=== PATIENT | female | born 1970 | race Caucasian/White ===

== ENCOUNTER 2016-10-20 13:06 | Emergency (ER) | payer MEDICAID ==
[~2016-10-20] VITALS: Ht 170.2 cm; Wt 80.0 kg
[2016-10-20 13:08] VITALS: BP 162/120; PULSE 102; RESP 22; TEMP 98.8; O2SAT 98
--- NOTE | 2016-10-20 13:23 | PD ---
Physical Exam Date Seen by Provider: Oct 20, 2016 Time Seen by Provider: 13:17 Narrative 45 YOWF FRIDAY INJURY LIFTING SEEN AT [facility]. PAIN MED AND IA. CONCERN OVER POSSIBLE HERNIA. H/O PRIOR HERNIA AND MESH. SEEN BY PMD ( DR LOUISE) WHO HAD REFERED HER TO THE ER. CT DONE AND NEG. NO VOMITING. SOME NAUSEA. POS LUPUS AND RA. VS NOTED. PT AWAITING BED PLACEMENT. Data Data Last Documented VS Vital Signs Date Time Temp Pulse Resp B/P Pulse Ox O2 Delivery O2 Flow Rate FiO2 10/20/16 13:08 98.8 102 22 162/120 98 MDM Medical Record Reviewed: Yes Supervised Visit with CRISTINA: Yes Jimmy Kennedy Oct 20, 2016 13:23
[2016-10-20] MEDS ORDERED: DIAZ5TAB PO (13:30)
[2016-10-20] MEDS ORDERED: HYDR-3583 PO (13:30)
[2016-10-20] MEDS ORDERED: TIZA4CAP3 PO (13:30)
[2016-10-20] MEDS ORDERED: MORP1CAP79 PO (13:30)
[2016-10-20] MEDS ORDERED: GABA600T PO (13:30)
[2016-10-20] MEDS ORDERED: MIRTA15 PO (13:30)
[2016-10-20 13:52] VITALS: BP 149/75; PULSE 90; RESP 22; O2SAT 97
[2016-10-20] MEDS: ONDANSETRON HCL 4 MG/2 ML VIAL IV ONE (13:53)
[2016-10-20] MEDS: SODIUM CHLORIDE 0.9% FLUSH 10 ML FLUSH IV FLUSH PRN (13:53)
[2016-10-20] MEDS: MORPHINE SULFATE 4 MG/ML INJ IV PUSH ONE (13:54)
[2016-10-20 14:04] LABS: AUTOMATED NEUTROPHIL # 5.1 TH/MM3 (1.8-7.7); BASOPHIL # 0.2 TH/MM3 (0-0.2); BASOPHIL % 1.3 % (0.0-2.0); EOSINOPHIL # 0.3 TH/MM3 (0-0.4); EOSINOPHIL % 2.2 % (0.0-4.0); HEMATOCRIT 45.6 % (35.0-46.0); LYMPH % 47.7 % (9.0-44.0); LYMPHOCYTE # 5.7 TH/MM3 (1.0-4.8); MEAN CELL VOLUME 86.9 FL (80.0-100.0); MEAN CORPUSCULAR HEMOGLOBIN 29.6 PG (27.0-34.0); MEAN CORPUSCULAR HGB CONC 34.1 % (32.0-36.0); MONO % 6.4 % (0.0-8.0); NEUT % 42.4 % (16.0-70.0); PLATELET COUNT 378 TH/MM3 (150-450); RED BLOOD COUNT 5.25 MIL/MM3 (4.00-5.30)
[2016-10-20 14:06] LABS: HEMO FLAGS AUTO DIFF
[2016-10-20] MEDS: IOHEXOL 350 MG/ML 10 ML VIAL (for RAD DIAG) IV ONE (14:07)
[2016-10-20 14:14] LABS: INTERNATIONAL NORMALIZED RATIO 0.9 RATIO; PROTHROMBIN TIME - PATIENT 10.4 SEC (9.8-11.6)
[2016-10-20 14:20] LABS: ANION GAP 9 MEQ/L (5-15); AST (GOT) 33 U/L (15-37); BICARBONATE 26.8 MEQ/L (21.0-32.0); BLOOD UREA NITROGEN 5 MG/DL (7-18); CHLORIDE 106 MEQ/L (98-107); GLOMERULAR FILTRATION RATE 80 ML/MIN (>89); POTASSIUM 3.4 MEQ/L (3.5-5.1); SODIUM (NA) 142 MEQ/L (136-145)
[2016-10-20 14:28] LABS: ALKALINE PHOSPHATASE 82 U/L (45-117); ALT (GPT) 48 U/L (10-53); TOTAL BILIRUBIN ADULT 0.2 MG/DL (0.2-1.0)
--- NOTE | 2016-10-20 14:34 | RADRPT ---
EXAM DATE/TIME: 10/20/2016 14:08 [facility] COMPARISON: No previous studies available for comparison. INDICATIONS : Evaluate for hernia. IV CONTRAST: 75 cc Omnipaque 350 (iohexol) IV ORAL CONTRAST: No oral contrast ingested. RADIATION DOSE: 12.11 CTDIvol (mGy) MEDICAL HISTORY : Rheumatoid arthritis. SURGICAL HISTORY : Cholecystectomy. Hysterectomy.Pelvic, Hernia repair. ENCOUNTER: Initial ACUITY: 1 day PAIN SCALE: 5/10 LOCATION: Bilateral abdomen TECHNIQUE: Volumetric scanning of the abdomen and pelvis was performed. Using automated exposure control and ad justment of the mA and/or kV according to patient size, radiation dose was kept as low as reasonably achievable to obtain optimal diagnostic quality images. FINDINGS: LOWER LUNGS: The visualized lower lungs are clear. LIVER: Homogeneous density without lesion. There is no dilation of the biliary tree. The patient is status post prior cholecystectomy. SPLEEN: Normal size without lesion. PANCREAS: Within normal limits. KIDNEYS: Normal in size and shape. There is no mass, stone or hydronephrosis. ADRENAL GLANDS: Within normal limits. VASCULAR: There is no aortic aneurysm. BOWEL/MESENTERY: The stomach, small bowel, and colon demonstrate no acute abnormality. There is no free intraperitone al air or fluid. ABDOMINAL WALL: There is a mesh identified in the midline umbilical region with area of mild diastases but no evidenc e of discrete hernia. RETROPERITONEUM: There is no lymphadenopathy. BLADDER: No wall thickening or mass. REPRODUCTIVE: Within normal limits. INGUINAL: There is no lymphadenopathy or hernia. MUSCULOSKELETAL: No evidence of concerning lytic or blastic lesion. Surgical plate and screws traverse the bilateral p ubic bones. CONCLUSION: Evidence of prior mesh repair with small area of rectus diastases and no evidence of hernia. Bailee Hale MD on October 20, 2016 at 14:30 Board Certified Radiologist. This report was verified electronically.
[2016-10-20 14:35] LABS: BANDS 1 % (0-6); EOSINOPHILS 3 % (0-4); NEUTROPHIL # MANUAL DIFF 5.5 TH/MM3 (1.8-7.7); PLATELET ESTIMATE SMEAR NORMAL (NORMAL); PLATELET MORPHOLOGY NORMAL (NORMAL); POLYS (SEG NEUTROPHILS) 45 % (16-70); SCAN/DIFF FINAL DIFF MANUAL; WBC DIFF SAMPLE 100
[2016-10-20 14:46] VITALS: BP 138/78; PULSE 86; RESP 17; TEMP 97.8; O2SAT 99
--- NOTE | 2016-10-20 14:50 | PD ---
HPI Chief Complaint: Abdominal Pain Time Seen by Provider: 13:26 Travel History International Travel<30 days: No Contact w/Intl Traveler<30days: No Traveled to known affect area: No History of Present Illness HPI The patient was seen and examined in the presence of the nurse. This patient complains of abdominal pain. Location is a few centimeters above and to the left of the umbilicus. Duration is one week. Severity is moderate. No injury. It started when she was lifting a 40 pound bag of dog food and felt a rip in her abdomen. She has history of hernia repair with mesh there. No vomiting or diarrhea or fever. No alleviating factors. PFSH Past Medical History Diminished Hearing: No Kidney Stones: Yes Medical other: Yes (LUPUS, RA, NEUROPATHY IN FEET AND HANDS) Tetanus Vaccination: Unknown ?: Not Past Surgical History Cholecystectomy: Yes Hysterectomy: Yes Oral Surgery: Yes (L WRIST SX, L LEG, BROKEN PELVIS) Other Surgery: Yes (HERNIA SX X 3) Social History Alcohol Use: Yes (RARELY) Tobacco Use: Yes (1 PPD) Substance Use: No Allergies-Medications (Allergen,Severity, Reaction): Coded Allergies: Codeine (Verified Allergy, Severe, 10/20/16) Nubain (Verified Allergy, Severe, 10/20/16) Penicillin (Verified Allergy, Severe, 10/20/16) Sulfa (Verified Allergy, Severe, 10/20/16) Reported Meds & Prescriptions Reported Meds & Active Scripts Active Reported Diazepam 5 Mg Tab 5 Mg PO TID PRN Mirtazapine 15 Mg Tab 15 Mg PO HS Embeda (Morphine-Naltrexone ER) 20-0.8 Mg Caper 1 Cap PO DAILY Tizanidine (Tizanidine HCl) 4 Mg Cap 4 Mg PO TID Hydrocodone-Acetaminophen 10-325 mg Tab 1 Tab PO TID PRN Gabapentin 600 Mg Tab 600 Mg PO TID Review of Systems General / Constitutional: No: Fever Eyes: No: Visual changes HENT: No: Headaches Cardiovascular: No: Chest Pain or Discomfort Respiratory: No: Shortness of Breath Gastrointestinal: Positive: Abdominal Pain Genitourinary: No: Dysuria Musculoskeletal: No: Pain Skin: No Rash Neurologic: No: Weakness Psychiatric: No: Depression Endocrine: No: Polydipsia Hematologic/Lymphatic: No: Easy Bruising Physical Exam Narrative GENERAL: Well-nourished, well-developed patient with abdominal pain . SKIN: Focused skin assessment reveals no rash and nodules. Skin is Warm and dry. HEAD: Atraumatic. Normocephalic. EYES: Pupils equal and round. No scleral icterus. No injection or drainage. ENT: No nasal bleeding or discharge. Mucous membranes pink and moist. NECK: Trachea midline. No JVD. CARDIOVASCULAR: Regular rate and rhythm. No murmur appreciated. RESPIRATORY: No accessory muscle use. Clear to auscultation. Breath sounds equal bilaterally. GASTROINTESTINAL: Abdomen soft, there is tenderness in a discrete area above and left of the umbilicus. There is no rebound or guarding or hernia detected on exam, nondistended. Hepatic and splenic margins not palpable. MUSCULOSKELETAL: No obvious deformities. No clubbing. No cyanosis. No edema. NEUROLOGICAL: Awake and alert. No obvious cranial nerve deficits. Motor grossly within normal limits. Normal speech. PSYCHIATRIC: Highly anxious mood and affect; insight and judgment normal. Data Data Last Documented VS Vital Signs Date Time Temp Pulse Resp B/P Pulse Ox O2 Delivery O2 Flow Rate FiO2 10/20/16 14:46 97.8 86 17 138/78 99 Room Air Orders Complete Blood Count With Diff (10/20/16 13:40) Comprehensive Metabolic Panel (10/20/16 13:40) Lipase (10/20/16 13:40) Prothrombin Time / Inr (Pt) (10/20/16 13:40) Act Partial Throm Time (Ptt) (10/20/16 13:40) Ct Abd/Pel W Iv Contrast(Rout) (10/20/16 13:40) Iv Access Insert/Monitor (10/20/16 13:40) Ecg Monitoring (10/20/16 13:40) Oximetry (10/20/16 13:40) Sodium Chloride 0.9% Flush (Ns Flush) (10/20/16 13:45) Ondansetron Inj (Zofran Inj) (10/20/16 13:45) Morphine Inj (Morphine Inj) (10/20/16 13:45) Iohexol 350 Inj (Omnipaque 350 Inj) (10/20/16 14:07) Labs Laboratory Tests Test 10/20/16 13:48 White Blood Count 12.0 TH/MM3 Red Blood Count 5.25 MIL/MM3 Hemoglobin 15.5 GM/DL Hematocrit 45.6 % Mean Corpuscular Volume 86.9 FL Mean Corpuscular Hemoglobin 29.6 PG Mean Corpuscular Hemoglobin 34.1 % Concent Red Cell Distribution Width 13.0 % Platelet Count 378 TH/MM3 Mean Platelet Volume 8.2 FL Neutrophils (%) (Auto) 42.4 % Lymphocytes (%) (Auto) 47.7 % Monocytes (%) (Auto) 6.4 % Eosinophils (%) (Auto) 2.2 % Basophils (%) (Auto) 1.3 % Neutrophils # (Auto) 5.1 TH/MM3 Lymphocytes # (Auto) 5.7 TH/MM3 Monocytes # (Auto) 0.8 TH/MM3 Eosinophils # (Auto) 0.3 TH/MM3 Basophils # (Auto) 0.2 TH/MM3 CBC Comment AUTO DIFF Differential Total Cells 100 Counted Neutrophils % (Manual) 45 % Band Neutrophils % 1 % Lymphocytes % 47 % Monocytes % 4 % Eosinophils % 3 % Neutrophils # (Manual) 5.5 TH/MM3 Differential Comment FINAL DIFF MANUAL Atypical Lymphocytes % Platelet Estimate NORMAL Platelet Morphology Comment NORMAL Red Cell Morphology Comment NORMAL Prothrombin Time 10.4 SEC Prothromb Time International 0.9 RATIO Ratio Activated Partial 27.0 SEC Thromboplast Time Sodium Level 142 MEQ/L Potassium Level 3.4 MEQ/L Chloride Level 106 MEQ/L Carbon Dioxide Level 26.8 MEQ/L Anion Gap 9 MEQ/L Blood Urea Nitrogen 5 MG/DL Creatinine 0.77 MG/DL Estimat Glomerular Filtration 80 ML/MIN Rate Random Glucose 97 MG/DL Calcium Level 8.6 MG/DL Total Bilirubin 0.2 MG/DL Aspartate Amino Transf 33 U/L (AST/SGOT) Alanine Aminotransferase 48 U/L (ALT/SGPT) Alkaline Phosphatase 82 U/L Total Protein 7.3 GM/DL Albumin 3.3 GM/DL Lipase 81 U/L [facility] Medical Decision Making Medical Screen Exam Complete: Yes Emergency Medical Condition: Yes Medical Record Reviewed: Yes Differential Diagnosis Incarcerated hernia, ileus, irritable bowel syndrome Narrative Course I have reviewed the patient's electronic medical record. She has never been here to this ER before IV placed I gave her 1 dose of morphine and Zofran for symptom relief CBC is normal Metabolic profile is normal LFTs are normal CT of abdomen and pelvis reveals no evidence of hernia. There is a mild area of rectus diastases. No other abnormalities noted. I reviewed this with the patient. She is to call her family physician tomorrow for follow-up. Diagnosis Primary Impression: Acute abdominal pain Additional Impression: Rectus diastasis Additional Instructions: The patient was advised to follow up with their physician and return if they worsen. Med/Other Pt SpecificInfo: Other Disposition: 01 DISCHARGE HOME Condition: Stable Alfred Castro MD Oct 20, 2016 14:50
[2016-10-20 15:20] VITALS: BP 130/77; TEMP 97.8
== END 2016-10-20 15:20 | disposition home or self-care (01) ==
LOC: NEPE 13:06
DX: R10.9 Unspecified abdominal pain (principal); M32.9 Systemic lupus erythematosus, unspecified; M06.9 Rheumatoid arthritis, unspecified; G62.9 Polyneuropathy, unspecified; F17.200 Nicotine dependence, unspecified, uncomplicated
CPT/HCPCS: 74177; 80053; 83690; 85007; 85027; 85610; 85730; 96374; 96375; 99284; J2270; J2405; Q9967

== ENCOUNTER 2016-10-27 12:34 | Observation (INO) | payer MEDICAID ==
[~2016-10-27] VITALS: Ht 170.2 cm; Wt 78.0 kg
[~2016-10-27 12:34] MED LIST: DIAZ5TAB PO; GABA600T PO; HYDR-3583 PO; MIRTA15 PO; MORP1CAP79 PO; TIZA4CAP3 PO
[2016-10-27 12:43] VITALS: BP 141/88; PULSE 100; RESP 22; TEMP 97.9; O2SAT 97
--- NOTE | 2016-10-27 12:43 | PD ---
HPI . hernia pain Chief Complaint: hernia pain today Time Seen by Provider: 12:43 Travel History International Travel<30 days: No Contact w/Intl Traveler<30days: No Traveled to known affect area: No History of Present Illness HPI 45-year-old female here with complaints of hernia pain. Patient was seen here on October 20, 2016 regarding the same issue. Apparently she has a periumbilical hernia that has been repaired 3 times with mesh and thinks that it has returned. She tells me that this morning she picked up her niece who is "chunky " and hurt herself. She is very tearful and crying out in pain. Initially she rates the pain as 10/10. She was also seen by Dr. Ty Hill and told him the pain was 12/10. The CT scan done last week and it was negative for any acute findings. Today she is also complaining of some additional nausea and vomiting. She denies any fever or chills. She has no other complaints. She has no bowel abnormalities. PFSH Past Medical History Diminished Hearing: No Kidney Stones: Yes Past Surgical History Cholecystectomy: Yes Hysterectomy: Yes Oral Surgery: Yes (L WRIST SX, L LEG, BROKEN PELVIS) Other Surgery: Yes (HERNIA SX X 3) Social History Alcohol Use: Yes (RARELY) Tobacco Use: Yes (1 PPD) Substance Use: No Allergies-Medications (Allergen,Severity, Reaction): Coded Allergies: Codeine (Verified Allergy, Severe, 10/27/16) Nubain (Verified Allergy, Severe, 10/27/16) Penicillin (Verified Allergy, Severe, 10/27/16) Sulfa (Verified Allergy, Severe, 10/27/16) Reported Meds & Prescriptions Reported Meds & Active Scripts Active Reported Diazepam 5 Mg Tab 5 Mg PO TID PRN Mirtazapine 15 Mg Tab 15 Mg PO HS Embeda (Morphine-Naltrexone ER) 20-0.8 Mg Caper 1 Cap PO DAILY Tizanidine (Tizanidine HCl) 4 Mg Cap 4 Mg PO TID Hydrocodone-Acetaminophen 10-325 mg Tab 1 Tab PO TID PRN Gabapentin 600 Mg Tab 600 Mg PO TID Review of Systems General / Constitutional: No: Fever Eyes: No: Visual changes HENT: No: Headaches Cardiovascular: No: Chest Pain or Discomfort Respiratory: No: Shortness of Breath Gastrointestinal: Positive: Nausea, Vomiting, Abdominal Pain Genitourinary: No: Dysuria Musculoskeletal: No: Pain Skin: No Rash Neurologic: No: Weakness Psychiatric: No: Depression Endocrine: No: Polydipsia Hematologic/Lymphatic: No: Easy Bruising Physical Exam Narrative GENERAL: AAO x 3, no acute distress, Well-nourished, well-developed patient. Tearful, sitting in bed and appears uncomfortable SKIN: Warm and dry. No visible rashes or bruising. HEAD: Normocephalic and atraumatic. EYES: No scleral icterus. No injection or drainage. ENT: No nasal drainage noted. Airway patent. NECK: Supple, trachea midline. No JVD. CARDIOVASCULAR: Regular rate and rhythm without murmurs, gallops, or rubs. RESPIRATORY: Breath sounds equal bilaterally. No accessory muscle use. No rhonchi or rales. GASTROINTESTINAL: Abdomen soft. I can barely assess the abdomen. Even my slightest touch causes significant discomfort and pain. Bowel sounds are normoactive EXTREMITIES: No cyanosis or edema. BACK: Nontender without obvious deformity. No CVA tenderness. PSYCH: AAO x 3, appears anxious Data Data Last Documented VS Vital Signs Date Time Temp Pulse Resp B/P Pulse Ox O2 Delivery O2 Flow Rate FiO2 10/27/16 15:50 80 18 126/58 98 Room Air 10/27/16 12:43 97.9 Orders Complete Blood Count With Diff (10/27/16 12:55) Comprehensive Metabolic Panel (10/27/16 12:55) Lipase (10/27/16 12:55) Urinalysis - C+S If Indicated (10/27/16 12:55) Ct Abd/Pel W Iv Contrast(Rout) (10/27/16 12:55) Iv Access Insert/Monitor (10/27/16 12:55) Ecg Monitoring (10/27/16 12:55) Oximetry (10/27/16 12:55) Ondansetron Inj (Zofran Inj) (10/27/16 13:00) Sodium Chloride 0.9% Flush (Ns Flush) (10/27/16 13:00) Ed Urine Pregnancytest Poc (10/27/16 12:55) Oral Contrast - Adult (10/27/16 13:02) Hydromorphone Pf Inj (Dilaudid Pf Inj) (10/27/16 13:15) Diatrizoate Liq ( Gastroce Liq) (10/27/16 13:22) Hydromorphone Pf Inj (Dilaudid Pf Inj) (10/27/16 13:30) Drug Screen, Random Urine (10/27/16 13:29) Urine Culture (10/27/16 14:05) Ketorolac Inj (Toradol Inj) (10/27/16 15:30) Iohexol 350 Inj (Omnipaque 350 Inj) (10/27/16 15:43) Admit Order (Ed Use Only) (10/27/16 16:38) Labs Laboratory Tests Test 10/27/16 10/27/16 13:13 14:05 White Blood Count 13.4 TH/MM3 Red Blood Count 5.06 MIL/MM3 Hemoglobin 14.8 GM/DL Hematocrit 44.4 % Mean Corpuscular Volume 87.9 FL Mean Corpuscular Hemoglobin 29.2 PG Mean Corpuscular Hemoglobin 33.2 % Concent Red Cell Distribution Width 13.4 % Platelet Count 314 TH/MM3 Mean Platelet Volume 8.4 FL Neutrophils (%) (Auto) 63.7 % Lymphocytes (%) (Auto) 26.4 % Monocytes (%) (Auto) 7.6 % Eosinophils (%) (Auto) 1.4 % Basophils (%) (Auto) 0.9 % Neutrophils # (Auto) 8.5 TH/MM3 Lymphocytes # (Auto) 3.5 TH/MM3 Monocytes # (Auto) 1.0 TH/MM3 Eosinophils # (Auto) 0.2 TH/MM3 Basophils # (Auto) 0.1 TH/MM3 CBC Comment DIFF FINAL Differential Comment Sodium Level 138 MEQ/L Potassium Level 3.6 MEQ/L Chloride Level 106 MEQ/L Carbon Dioxide Level 24.7 MEQ/L Anion Gap 7 MEQ/L Blood Urea Nitrogen 8 MG/DL Creatinine 0.79 MG/DL Estimat Glomerular Filtration 78 ML/MIN Rate Random Glucose 93 MG/DL Calcium Level 8.8 MG/DL Total Bilirubin 0.4 MG/DL Aspartate Amino Transf 50 U/L (AST/SGOT) Alanine Aminotransferase 67 U/L (ALT/SGPT) Alkaline Phosphatase 84 U/L Total Protein 7.4 GM/DL Albumin 3.2 GM/DL Lipase 83 U/L Urine Color YELLOW Urine Turbidity HAZY Urine pH 5.0 Urine Specific [place] 1.020 Urine Protein TRACE mg/dL Urine Glucose (UA) NEG mg/dL Urine Ketones NEG mg/dL Urine Occult Blood NEG Urine Nitrite NEG Urine Bilirubin NEG Urine Urobilinogen 2.0 MG/DL Urine Leukocyte Esterase NEG Urine RBC 1 /hpf Urine WBC 3 /hpf Urine Squamous Epithelial 10 /hpf Cells Urine Bacteria MANY /hpf Urine Mucus FEW /lpf Microscopic Urinalysis Comment CULTURE INDICATED Urine Opiates Screen POS Urine Barbiturates Screen NEG Urine Amphetamines Screen NEG Urine Benzodiazepines Screen POS Urine Cocaine Screen NEG Urine Cannabinoids Screen POS MDM Medical Decision Making Medical Screen Exam Complete: Yes Emergency Medical Condition: Yes Medical Record Reviewed: Yes Differential Diagnosis Abdominal pain, hernia, less likely acute abdomen Narrative Course 45-year-old female here with complaints of hernia pain. Patient was seen here on October 20, 2016 regarding the same issue. Apparently she has a periumbilical hernia that has been repaired 3 times with mesh and thinks that it has returned. She tells me that this morning she picked up her niece who is "chunky " and hurt herself. She is very tearful and crying out in pain. Initially she rates the pain as 10/10. She was also seen by Dr. Ty Hill and told him the pain was 12/10. The CT scan done last week and it was negative for any acute findings. Today she is also complaining of some additional nausea and vomiting. She denies any fever or chills. She has no other complaints. She has no bowel abnormalities. Patient seen and examined. Case discussed with Dr. Ty Hill, who also examined the patient. We recommend another CT scan, initially patient declined, but now she is in agreement. We will also check some labs to make sure there is no abnormal white count or electrolyte abnormality. Lipase ordered. Her white count is slightly elevated, her LFTs are slightly elevated. Lipase within normal Limits. CT scan without any acute intra-abdominal findings. Patient reported bright red blood per rectum. Dr. Hill performed a bedside guaiac test that was negative. We will go ahead and admit this patient for further evaluation and treatment. Called placed for admitting physicians for call back. [id number]: I spoke with Dr. Clemens. He has agreed to take the patient. Patient has been admitted for 23 hour observation and placed in the CDU. I have discussed this with her and she was in agreement and happy. Diagnosis Primary Impression: Acute abdominal pain Admitting Information Admitting Physician Requests: Admit Condition: Stable Jaimie Quevedo Oct 27, 2016 12:43
[2016-10-27 13:00] VITALS: RESP 18; O2SAT 98
[2016-10-27] MEDS ORDERED: ONDANSETRON HCL 4 MG/2 ML VIAL IVP ONE (13:00)
[2016-10-27] MEDS ORDERED: HYDROmorphone HCL PF 1 MG/ML VIAL IV PUSH ONE ×2 (13:15→13:30)
[2016-10-27] MEDS ORDERED: DIATRIZOATE MEGLUM/DIATRIZOATE SOD 9 ML CUP ONE (13:22)
[2016-10-27 13:30] LABS: AUTOMATED NEUTROPHIL # 8.5 TH/MM3 (1.8-7.7); BASOPHIL # 0.1 TH/MM3 (0-0.2); BASOPHIL % 0.9 % (0.0-2.0); EOSINOPHIL # 0.2 TH/MM3 (0-0.4); EOSINOPHIL % 1.4 % (0.0-4.0); HEMATOCRIT 44.4 % (35.0-46.0); HEMO FLAGS DIFF FINAL; LYMPH % 26.4 % (9.0-44.0); LYMPHOCYTE # 3.5 TH/MM3 (1.0-4.8); MEAN CELL VOLUME 87.9 FL (80.0-100.0); MEAN CORPUSCULAR HEMOGLOBIN 29.2 PG (27.0-34.0); MEAN CORPUSCULAR HGB CONC 33.2 % (32.0-36.0); MONO % 7.6 % (0.0-8.0); NEUT % 63.7 % (16.0-70.0); PLATELET COUNT 314 TH/MM3 (150-450); RED BLOOD COUNT 5.06 MIL/MM3 (4.00-5.30); RED CELL DISTRIBUTION WIDTH 13.4 % (11.6-17.2); WHITE BLOOD COUNT 13.4 TH/MM3 (4.0-11.0)
[2016-10-27 13:53] LABS: ANION GAP 7 MEQ/L (5-15); AST (GOT) 50 U/L (15-37); BICARBONATE 24.7 MEQ/L (21.0-32.0); BLOOD UREA NITROGEN 8 MG/DL (7-18); CHLORIDE 106 MEQ/L (98-107); GLOMERULAR FILTRATION RATE 78 ML/MIN (>89); POTASSIUM 3.6 MEQ/L (3.5-5.1); SODIUM (NA) 138 MEQ/L (136-145)
[2016-10-27 13:56] LABS: ALKALINE PHOSPHATASE 84 U/L (45-117); ALT (GPT) 67 U/L (10-53); TOTAL BILIRUBIN ADULT 0.4 MG/DL (0.2-1.0)
[2016-10-27 14:18] LABS: BACTERIA, URINE MANY /hpf; BLOOD, URINE NEG (NEG); GLUCOSE,URINE NEG (NEG); KETONE, URINE NEG (NEG); MUCUS URINE FEW /lpf (OCC); NITRITE,URINE NEG (NEG); SQUAMOUS EPITHELIAL CELL URINE 10 /hpf (0-5); URINE COLOR YELLOW (YELLW/STRAW)
[2016-10-27 14:19] LABS: COMMENT (UR) CULTURE INDICATED; CULTURE IF INDICATED CULTURE INDICATED
[2016-10-27 14:23] LABS: AMPHETAMINE, URINE NEG (NEG); BARBITURATES, URINE NEG (NEG); COCAINE, URINE NEG (NEG)
[2016-10-27] MEDS ORDERED: KETOROLAC TROMETHAMINE 60 MG/2 ML (IM) VIAL IM ONE (15:30)
[2016-10-27] MEDS ORDERED: IOHEXOL 350 MG/ML 10 ML VIAL (for RAD DIAG) IV ONE (15:43)
[2016-10-27 15:50] VITALS: BP 126/58; PULSE 80; RESP 18; O2SAT 98
--- NOTE | 2016-10-27 16:06 | RADRPT ---
EXAM DATE/TIME: 10/27/2016 15:06 [facility] COMPARISON: CT ABDOMEN & PELVIS W CONTRAST, October 20, 2016, 14:08. INDICATIONS : Periumbilical pain, nausea. IV CONTRAST: 98 cc Omnipaque 350 (iohexol) IV ORAL CONTRAST: Prescribed oral contrast ingested. RADIATION DOSE: 13.20 CTDIvol (mGy) MEDICAL HISTORY : Hernia, umbilical. SURGICAL HISTORY : Umbilical hernia repair. Cholecystectomy.Hysterectomy. ENCOUNTER: Initial ACUITY: 1 day PAIN SCALE: 8/10 LOCATION: Umbilical TECHNIQUE: Volumetric scanning of the abdomen and pelvis was performed. Using automated exposure control and ad justment of the mA and/or kV according to patient size, radiation dose was kept as low as reasonably achievable to obtain optimal diagnostic quality images. FINDINGS: Lung bases are clear. There is diffuse fatty infiltration of the liver. Spleen, adrenals, kidneys and pancreas unremarkable. Previous cholecystectomy. Mild constipation. Previous ventral hernia repair. Previous plate and screw fixation of the anterior pelvis. Postoperative cholecystectomy and hysterectomy. CONCLUSION: 1. Postoperative ventral hernia repair the periumbilical region as well as cholecystectomy and hyster ectomy. Also previous fixation of anterior bony pelvis. 2. Fatty liver. No acute findings within the abdomen or pelvis. 3. Mild constipation. Jimmy Clemente MD on October 27, 2016 at 16:00 Board Certified Radiologist. This report was verified electronically.
--- NOTE | 2016-10-27 16:54 | HHI.HP ---
[facility] Service [place] [facility] Primary Care Physician Non-Staff Admission Diagnosis Intractable abdominal pain Diagnoses: Chief Complaint: abdominal pain Travel History International Travel<30 Days: No Contact w/Intl Traveler <30 Da: No Traveled to Known Affected Are: No History of Present Illness 45-year-old female with reported history of lupus, rheumatoid arthritis, umbilical hernia s/p repair x3 with mesh presents with 1 day history of acute on chronic abdominal pain. Patient reports her symptoms were exacerbated two weeks ago when she was picking up a 50 pound bag of dog food and had immediate onset of abdominal pain near the umbilicus. The pain improved, however again today she picked up a 3-year-old child and had acute onset abdominal pain. She locates the pain to the umbilical region without radiation, described as constant 12/10 sharp stabbing pains, associated with nausea and one episode of vomiting. Denies fevers or chills. She reports one normal formed bowel movement yesterday, however has been having bright red blood per rectum over the past week. She did take her home narcotic pain medication that she is prescribed for her pelvic pain with minimal relief. She denies any dysuria or suprapubic pain. She states her PCP referred her to parimutuel ticket checker Dr. Welsh who is planning to perform colonoscopy this 10/31. Review of Systems Except as stated in HPI: all other systems reviewed are Neg Past Family Social History Past Medical History Lupus Rheumatoid Arthritis Periumbilical hernia Nephrolithiasis Thyroid nodules Past Surgical History Hysterectomy Cholecystectomy Left wrist surgery Left leg surgery Pelvic fixation Hernia repair 3 Tonsillectomy Reported Medications Diazepam 5 Mg Tab 5 Mg PO TID PRN Mirtazapine 15 Mg Tab 15 Mg PO HS Embeda (Morphine-Naltrexone ER) 20-0.8 Mg Caper 1 Cap PO DAILY Tizanidine (Tizanidine HCl) 4 Mg Cap 4 Mg PO TID Hydrocodone-Acetaminophen 10-325 mg Tab 1 Tab PO TID PRN Gabapentin 600 Mg Tab 600 Mg PO TID Allergies: Coded Allergies: Codeine (Verified Allergy, Severe, 10/27/16) Nubain (Verified Allergy, Severe, 10/27/16) Penicillin (Verified Allergy, Severe, 10/27/16) Sulfa (Verified Allergy, Severe, 10/27/16) Active Ordered Medications Current Medications Medications (Trade) Dose Ordered Sig/Danielle Route Start Time Stop Time Status Last Admin (NS Flush) 2 ml UNSCH PRN IV FLUSH 10/27/16 13:00 Family History Mother with ovarian, breast, and colorectal cancer, mental health issues, COPD Father age 57 with heart disease Social History Smokes tobacco, one pack per day for the past 5 years Rare alcohol use Smokes marijuana 2-3 blunts per week Physical Exam Vital Signs Vital Signs Date Time Temp Pulse Resp B/P Pulse Ox O2 Delivery O2 Flow Rate FiO2 10/27/16 15:50 80 18 126/58 98 Room Air 10/27/16 13:00 18 98 Room Air 10/27/16 12:43 97.9 100 22 141/88 97 Physical Exam GENERAL: Well-nourished, well-developed middle aged female patient in [employer]. SKIN: Warm and dry. No rash. HEENT: Normocephalic. Atraumatic. Pupils equal and round. Mucous membranes pink and moist. NECK: Supple. Trachea midline. CARDIOVASCULAR: Regular rate and rhythm. S1, S2 noted. No murmur appreciated. RESPIRATORY: No accessory muscle use. Clear to auscultation. Breath sounds equal bilaterally. GASTROINTESTINAL: Abdomen soft, NONTENDER with distraction, nondistended. Normoactive bowel sounds x4. MUSCULOSKELETAL: No obvious deformities. Extremities without clubbing, cyanosis , or edema. NEUROLOGICAL: Awake and alert. No obvious cranial nerve deficits. Motor grossly within normal limits. Moves all extremities spontaneously. Normal speech. PSYCHIATRIC: Anxious mood; insight and judgment normal. Laboratory Laboratory Tests Test 10/27/16 10/27/16 13:13 14:05 White Blood Count 13.4 Red Blood Count 5.06 Hemoglobin 14.8 Hematocrit 44.4 Mean Corpuscular Volume 87.9 Mean Corpuscular Hemoglobin 29.2 Mean Corpuscular Hemoglobin 33.2 Concent Red Cell Distribution Width 13.4 Platelet Count 314 Mean Platelet Volume 8.4 Neutrophils (%) (Auto) 63.7 Lymphocytes (%) (Auto) 26.4 Monocytes (%) (Auto) 7.6 Eosinophils (%) (Auto) 1.4 Basophils (%) (Auto) 0.9 Neutrophils # (Auto) 8.5 Lymphocytes # (Auto) 3.5 Monocytes # (Auto) 1.0 Eosinophils # (Auto) 0.2 Basophils # (Auto) 0.1 CBC Comment DIFF FINAL Differential Comment Sodium Level 138 Potassium Level 3.6 Chloride Level 106 Carbon Dioxide Level 24.7 Anion Gap 7 Blood Urea Nitrogen 8 Creatinine 0.79 Estimat Glomerular Filtration 78 Rate Random Glucose 93 Calcium Level 8.8 Total Bilirubin 0.4 Aspartate Amino Transf 50 (AST/SGOT) Alanine Aminotransferase 67 (ALT/SGPT) Alkaline Phosphatase 84 Total Protein 7.4 Albumin 3.2 Lipase 83 Urine Color YELLOW Urine Turbidity HAZY Urine pH 5.0 Urine Specific [place] 1.020 Urine Protein TRACE Urine Glucose (UA) NEG Urine Ketones NEG Urine Occult Blood NEG Urine Nitrite NEG Urine Bilirubin NEG Urine Urobilinogen 2.0 Urine Leukocyte Esterase NEG Urine RBC 1 Urine WBC 3 Urine Squamous Epithelial 10 Cells Urine Bacteria MANY Urine Mucus FEW Microscopic Urinalysis Comment CULTURE INDICATED Urine Opiates Screen POS Urine Barbiturates Screen NEG Urine Amphetamines Screen NEG Urine Benzodiazepines Screen POS Urine Cocaine Screen NEG Urine Cannabinoids Screen POS Date/Time Procedure Status Source Growth 10/27/16 14:05 Urine Culture Received Urine Clean Catch Pending Result Diagram: 10/27/16 1313 10/27/16 1313 Imaging Last Impressions Abdomen/Pelvis CT 10/27/16 1255 Signed Impressions: Service Date/Time: Thursday, October 27, 2016 15:06 - CONCLUSION: 1. Postoperative ventral hernia repair the periumbilical region as well as cholecystectomy and hysterectomy. Also previous fixation of anterior bony pelvis. 2. Fatty liver. No acute findings within the abdomen or pelvis. 3. Mild constipation. Jimmy Clemente MD Assessment and Plan Problem List: (1) Acute abdominal pain ICD Code: R10.9 Status: Acute (2) Hypokalemia ICD Code: E87.6 Status: Acute (3) Constipation ICD Code: K59.00 Status: Acute Assessment and Plan 45-year-old female with reported history of lupus, rheumatoid arthritis, umbilical hernia s/p repair x3 with mesh presents with 1 day history of acute on chronic abdominal pain. Abdominal Pain: unclear etiology. Abdomen/pelvis CT images reviewed, showed postoperative ventral hernia repair in the periumbilical region as well as cholecystectomy/hysterectomy; no acute intra-abdominal findings, mild constipation. S/p IV morphine en route and IV Dilaudid and Toradol in the ER. Exam benign. Supportive treatment with IVF, antiemetics prn, IV Toradol prn pain. Outpatient f/up with GI Dr. Welsh as scheduled for colonoscopy on 10/31. Concerned for drug seeking behavior. Patient does smoke marijuana on a regular basis, consider outpatient GES. BRBPR: reported per the patient however FOBT negative in the ED. Hgb stable at 14.8. Outpatient colonoscopy as scheduled. Mild Constipation: seen on CT abd. Likely secondary to chronic narcotic use. Start on colace. Last BM yesterday 10/26. Hypokalemia: likely secondary to recent poor oral intake and 1 episode of vomiting. Give KCl replacement. Recheck BMP in am. SIRS: with +leukocytosis and tachycardia. Likely secondary to recent episode of vomiting, also patient very anxious. No acute findings on CT. UA unremarkable. Give IVF. Repeat labs in am. Anxiety & Chronic Pain: Per [place] Prescription Drug Monitor Website, patient does take Diazepam 5mg q8h prn and Embeda 20-0.8mg capsule qd. Does not get Lortab prescribed regularly. Will avoid any further narcotics which can worsen abdominal pain. All other medical conditions stable, continue home medications as appropriate. DVT Prophylaxis: teds/SCDs Written by Pau José, acting as scribe for Dr. Clemens on 10/27/16 at 17: 40. This note was transcribed by scribe Pau José. I, Dr. Ifeanyi Clemens personally performed the history, physical exam, and medical decision making; and confirmed the accuracy of the information in the transcribed note. Authenticated by Dr. Ifeanyi Clemens on 10/27/16 at 17:40. Code Status Full code Discussed Condition With Patient, patient's sister and family at bedside, [employer] Pau José PA-C Oct 27, 2016 16:54 Ifeanyi Clemens MD Oct 27, 2016 20:24
[2016-10-27] MEDS ORDERED: ACETAMINOPHEN 325 MG TAB PO PRN (17:30)
[2016-10-27] MEDS ORDERED: ONDANSETRON HCL 4 MG/2 ML VIAL IVP PRN (17:30)
[2016-10-27] MEDS ORDERED: DIAZEPAM 5 MG TAB PO PRN (17:45)
[2016-10-27] MEDS ORDERED: POTASSIUM CHLOR 20 MEQ PREMIX 100 ML IV ONE (18:00)
[2016-10-27] MEDS ORDERED: PANTOPRAZOLE SODIUM 40 MG VIAL IV PUSH SCH (18:00)
[2016-10-27] MEDS: KETOROLAC TROMETHAMINE 30 MG/ML (IVP) VIAL IV PUSH PRN (18:22)
[2016-10-27] MEDS: GABAPENTIN 300 MG CAP PO SCH (18:22)
[2016-10-27 19:47] VITALS: BP 138/72; PULSE 82; RESP 16; TEMP 97.8; O2SAT 97
[2016-10-27] MEDS ORDERED: MIRTAZAPINE 15 MG TAB PO SCH (21:00)
[2016-10-27] MEDS: DOCUSATE SODIUM 100 MG CAP PO SCH (21:11)
[2016-10-28] VITALS: BP 74/47; PULSE 58; RESP 18; TEMP 97.4; O2SAT 94
[2016-10-28] MEDS: SODIUM CHLORIDE 0.9% FLUSH 10 ML FLUSH IV FLUSH PRN ×2 (00:32→06:29)
[2016-10-28] MEDS: KETOROLAC TROMETHAMINE 30 MG/ML (IVP) VIAL IV PUSH PRN ×2 (00:32→06:29)
[2016-10-28 04:00] VITALS: BP 87/51; PULSE 62; RESP 18; TEMP 97; O2SAT 96
[2016-10-28 04:45] LABS: AUTOMATED NEUTROPHIL # 3.9 TH/MM3 (1.8-7.7); BASOPHIL # 0.1 TH/MM3 (0-0.2); BASOPHIL % 0.9 % (0.0-2.0); EOSINOPHIL # 0.1 TH/MM3 (0-0.4); EOSINOPHIL % 1.9 % (0.0-4.0); HEMATOCRIT 38.4 % (35.0-46.0); HEMO FLAGS DIFF FINAL; LYMPH % 38.9 % (9.0-44.0); LYMPHOCYTE # 3.1 TH/MM3 (1.0-4.8); MEAN CELL VOLUME 87.1 FL (80.0-100.0); MEAN CORPUSCULAR HEMOGLOBIN 30.2 PG (27.0-34.0); MEAN CORPUSCULAR HGB CONC 34.7 % (32.0-36.0); MONO % 10.2 % (0.0-8.0); NEUT % 48.1 % (16.0-70.0); PLATELET COUNT 284 TH/MM3 (150-450); RED BLOOD COUNT 4.41 MIL/MM3 (4.00-5.30); RED CELL DISTRIBUTION WIDTH 13.2 % (11.6-17.2)
[2016-10-28 05:06] LABS: ALT (GPT) 56 U/L (10-53); ANION GAP 8 MEQ/L (5-15); AST (GOT) 39 U/L (15-37); BICARBONATE 25.5 MEQ/L (21.0-32.0); BLOOD UREA NITROGEN 12 MG/DL (7-18); CHLORIDE 105 MEQ/L (98-107); GLOMERULAR FILTRATION RATE 64 ML/MIN (>89); POTASSIUM 3.6 MEQ/L (3.5-5.1); SODIUM (NA) 138 MEQ/L (136-145)
[2016-10-28 05:09] LABS: ALKALINE PHOSPHATASE 81 U/L (45-117); TOTAL BILIRUBIN ADULT 0.4 MG/DL (0.2-1.0)
[2016-10-28 07:25] VITALS: BP 77/40; PULSE 60; RESP 18; TEMP 98; O2SAT 97
[2016-10-28] MEDS: GABAPENTIN 300 MG CAP PO SCH (08:08)
[2016-10-28] MEDS: DOCUSATE SODIUM 100 MG CAP PO SCH (08:08)
[2016-10-28] MEDS ORDERED: MORPHINE NALTREXONE PO SCH ×2 (09:00)
[2016-10-28 11:08] VITALS: BP 95/51; PULSE 61; RESP 20; TEMP 97.4; O2SAT 96
--- NOTE | 2016-10-28 12:04 | HHI.PR ---
Subjective Remarks Follow-up abdominal pain 10/28/16-patient seen and examined patient was initially observed walking on her own to the bathroom and while examined, patient complains of severe abdominal pain. Currently afebrile Objective Vitals Vital Signs Date Time Temp Pulse Resp B/P Pulse Ox O2 Delivery O2 Flow Rate FiO2 10/28/16 11:08 97.4 61 20 95/51 96 10/28/16 07:29 16 10/28/16 07:25 98.0 60 18 77/40 97 10/28/16 04:00 97.0 62 18 87/51 96 10/28/16 00:00 97.4 58 18 74/47 94 10/27/16 19:47 97.8 82 16 138/72 97 10/27/16 15:50 80 18 126/58 98 Room Air 10/27/16 13:00 18 98 Room Air 10/27/16 12:43 97.9 100 22 141/88 97 I/O 10/27/16 10/27/16 10/27/16 10/28/16 10/28/16 10/28/16 07:00 15:00 23:00 07:00 15:00 23:00 Intake Total 542 ml Output Total 4 ml Balance 542 ml -4 ml Intake Oral 442 ml IV Total 100 ml Output Urine Total 4 ml # Voids 1 Result Diagram: 10/28/16 0335 10/28/16 0335 Imaging Last Impressions Abdomen/Pelvis CT 10/27/16 1255 Signed Impressions: Service Date/Time: Thursday, October 27, 2016 15:06 - CONCLUSION: 1. Postoperative ventral hernia repair the periumbilical region as well as cholecystectomy and hysterectomy. Also previous fixation of anterior bony pelvis. 2. Fatty liver. No acute findings within the abdomen or pelvis. 3. Mild constipation. Jimmy Clemente MD Objective Remarks GENERAL: NAD SKIN: Warm and dry. HEAD: Normocephalic. EYES: No scleral icterus. No injection or drainage. NECK: Supple, trachea midline. No JVD or lymphadenopathy. CARDIOVASCULAR: Regular rate and rhythm without murmurs, gallops, or rubs. RESPIRATORY: Breath sounds equal bilaterally. No accessory muscle use. GASTROINTESTINAL: Abdomen soft, mildly tender, nondistended. +BS MUSCULOSKELETAL: No cyanosis, or edema. BACK: Nontender without obvious deformity. No CVA tenderness. A/P Problem List: (1) Acute abdominal pain ICD Code: R10.9 Status: Acute (2) Hypokalemia ICD Code: E87.6 Status: Acute (3) Constipation ICD Code: K59.00 Status: Acute Assessment and Plan 45-year-old female with Abdominal Pain: unclear etiology. may be secondary to muscle spasm. Abdomen/ pelvis CT images reviewed, showed postoperative ventral hernia repair in the periumbilical region as well as cholecystectomy/hysterectomy; no acute intra- abdominal findings, mild constipation. S/p IV morphine en route and IV Dilaudid and Toradol in the ER. Exam still benign. Continue with Supportive treatment with IVF, antiemetics prn, IV Toradol prn pain. Outpatient f/up with GI Dr. Welsh as scheduled for colonoscopy on 10/31. Concerned for drug seeking behavior. Patient does smoke marijuana on a regular basis, consider outpatient GES. BRBPR: reported per the patient however FOBT negative in the ED. Hgb stable at 14.8. Outpatient colonoscopy as scheduled. Mild Constipation: seen on CT abd. Likely secondary to chronic narcotic use. Continue on colace. Hypokalemia: Resolved status post replacement SIRS: with +leukocytosis and tachycardia. Likely secondary to recent episode of vomiting, also patient very anxious. No acute findings on CT. UA unremarkable. Give IVF. Repeat labs in am. Anxiety & Chronic Pain: Per [place] Prescription Drug Monitor Website, patient does take Diazepam 5mg q8h prn and Embeda 20-0.8mg capsule qd. Does not get Lortab prescribed regularly. Continue to avoid any further narcotics which can worsen abdominal pain. Hypotension: Likely secondary to narcotics. H&H stable All other medical conditions stable, continue home medications as appropriate. DVT Prophylaxis: teds/SCDs Discharge Planning Discharge patient to home Condition on discharge: Improved Regular Diet as tolerated Ad Risa activity Rx written:none Follow-up with primary care physician in 1week Ifeanyi Clemens MD Oct 28, 2016 12:04
[2016-10-28] MEDS ORDERED: DOCU1CAP39 PO (12:05)
== END 2016-10-28 13:10 | disposition home or self-care (01) ==
LOC: NEPD 12:34 → NEDA 16:40 → NEPFCDU 17:38
PROVIDERS: ADMIT Hospitalist; ATTEND Hospitalist
DX: R10.9 Unspecified abdominal pain (principal); E87.6 Hypokalemia; R65.10 Systemic inflammatory response syndrome (SIRS) of non-infectious origin without acute organ dysfunction; K59.00 Constipation, unspecified; F12.10 Cannabis abuse, uncomplicated; K62.5 Hemorrhage of anus and rectum; G89.29 Other chronic pain; F41.9 Anxiety disorder, unspecified; I95.2 Hypotension due to drugs; M06.9 Rheumatoid arthritis, unspecified; F17.210 Nicotine dependence, cigarettes, uncomplicated; Z88.5 Allergy status to narcotic agent; Z90.49 Acquired absence of other specified parts of digestive tract; Z88.0 Allergy status to penicillin; Z88.2 Allergy status to sulfonamides; Z88.8 Allergy status to other drugs, medicaments and biological substances
CPT/HCPCS: 74177; 80053; 80307; 81001; 83690; 84703; 85025; 87086; 96372; 96374; 96375; 99285; C9113; G0378; J1170; J1885; J2405; J3480; Q9963; Q9967

== ENCOUNTER 2017-09-17 09:51 | Emergency (ER) | payer MEDICAID ==
[~2017-09-17] VITALS: Ht 170.2 cm; Wt 109.0 kg
[~2017-09-17 09:51] MED LIST changes: +DOCU1CAP39 PO
[2017-09-17] MEDS ORDERED: IOHEXOL 350 MG/ML 10 ML VIAL (for RAD DIAG) IVCONTRAST ONE (09:52)
[2017-09-17 10:08] VITALS: BP 137/64; PULSE 87; RESP 22; TEMP 99; O2SAT 99
[2017-09-17 10:56] LABS: AUTOMATED NEUTROPHIL # 7.4 TH/MM3 (1.8-7.7); BASOPHIL % 0.4 % (0.0-2.0); EOSINOPHIL # 0.1 TH/MM3 (0-0.4); EOSINOPHIL % 0.5 % (0.0-4.0); HEMATOCRIT 44.3 % (35.0-46.0); HEMOGLOBIN 15.4 GM/DL (11.6-15.3); LYMPH % 20.8 % (9.0-44.0); LYMPHOCYTE # 2.2 TH/MM3 (1.0-4.8); MEAN CELL VOLUME 90.3 FL (80.0-100.0); MEAN CORPUSCULAR HEMOGLOBIN 31.4 PG (27.0-34.0); MEAN CORPUSCULAR HGB CONC 34.8 % (32.0-36.0); MEAN PLATELET VOLUME 7.7 FL (7.0-11.0); MONO % 8.7 % (0.0-8.0); MONOCYTE # 0.9 TH/MM3 (0-0.9); NEUT % 69.6 % (16.0-70.0); PLATELET COUNT 286 TH/MM3 (150-450); RED BLOOD COUNT 4.91 MIL/MM3 (4.00-5.30); WHITE BLOOD COUNT 10.7 TH/MM3 (4.0-11.0)
[2017-09-17] MEDS ORDERED: SODIUM CHLOR 0.9% 1000 ML INJ 1,000 ML IV SCH (11:01)
[2017-09-17 11:06] LABS: BICARBONATE 28.5 MEQ/L (21.0-32.0); CALCIUM 7.8 MG/DL (8.5-10.1); CREATININE 0.73 MG/DL (0.50-1.00)
[2017-09-17] MEDS ORDERED: SODIUM CHLORIDE 0.9% FLUSH 10 ML FLUSH IV FLUSH PRN (11:15)
[2017-09-17] MEDS ORDERED: KETOROLAC TROMETHAMINE 30 MG/ML (IVP) VIAL IVP ONE (11:15)
--- NOTE | 2017-09-17 11:20 | PD ---
HPI Chief Complaint: Oral / Dental Pain or Problem Time Seen by Provider: 10:43 Travel History International Travel<30 days: No Contact w/Intl Traveler<30days: No Traveled to known affect area: No History of Present Illness HPI 46-year-old female presents to the emergency department, sent by her dentist, with complaint of left-sided facial swelling for the third time in the last 2-3 months. She just stopped taking Augmentin 500 mg for the third time and her face swelled up again last night. She called her dentist and was told to come in. She reports fever of 101.0 last night. Denies vomiting. Denies sore throat, difficulty swallowing, unusual drooling. Reports left ear pain. Said she had tooth pain when her facial swelling first started, but no tooth pain now. Reports poor dentition. Says she was told that she needs all of her teeth pulled and for plates to be put in. History taking antibiotics and hydrocodone 10 mg for symptomatic management. Rates pain 9/10. Says it feels like "a bat hit her in the face." No known Relieving or aggravating factors. History of lupus and or a. Primary care provider is Dr. Zimmerman. Allergies to penicillin, codeine, sulfa, morphine, nalbuphine. PFSH Past Medical History Blood Disorders: No Cancer: No Cardiovascular Problems: No Diminished Hearing: No Endocrine: No Immune Disorder: Yes (LUPUS) Kidney Stones: Yes Musculoskeletal: Yes (RA) Neurologic: Yes (NEUROPATHY HANDS AND FEET) Respiratory: No ?: Not Past Surgical History Cholecystectomy: Yes Hysterectomy: Yes Oral Surgery: Yes (L WRIST SX, L LEG, BROKEN PELVIS) Other Surgery: Yes (HERNIA SX X 3) Social History Alcohol Use: Yes (RARELY) Tobacco Use: Yes (1 PPD) Substance Use: No Allergies-Medications (Allergen,Severity, Reaction): Coded Allergies: Sulfa (Sulfonamide Antibiotics) (Unverified Allergy, Severe, 09/17/17) morphine (Verified Allergy, Severe, Hives, 09/17/17) nalbuphine (Unverified Allergy, Severe, 09/17/17) penicillin G (Unverified Allergy, Severe, 09/17/17) codeine (Unverified Allergy, Intermediate, Hives, 09/17/17) Reported Meds & Prescriptions Reported Meds & Active Scripts Active Ibuprofen 800 Mg Tab 800 Mg PO Q6HR PRN Clindamycin (Clindamycin HCl) 150 Mg Cap 450 Mg PO Q6H 10 Days Dok (Docusate Sodium) 100 Mg Cap 100 Mg PO Q12H Reported Diazepam 5 Mg Tab 5 Mg PO TID PRN Mirtazapine 15 Mg Tab 15 Mg PO HS Embeda (Morphine-Naltrexone ER) 20-0.8 Mg Caper 1 Cap PO DAILY Tizanidine (Tizanidine HCl) 4 Mg Cap 4 Mg PO TID Hydrocodone-Acetaminophen 10-325 mg Tab 1 Tab PO TID PRN Gabapentin 600 Mg Tab 600 Mg PO TID Review of Systems Except as stated in HPI: all other systems reviewed are Neg Physical Exam Narrative GENERAL: Well-nourished, well-developed female patient, in no acute distress; afebrile, nontoxic-appearing SKIN: Warm and dry. HEAD: Atraumatic. Normocephalic. Left sided facial edema; minimal erythema; with tenderness on palpation. No lymphadenopathy. EYES: Pupils equal and round. No scleral icterus. No injection or drainage. ENT: Mucosa pink and moist. No erythema or exudates. No uvular edema. No uvular , palatal, or tonsillar deviation. Airway patent. EARS: Bilateral pinnae and external canals appear within normal limits. Bilateral tympanic membranes without erythema, dullness or perforation. MOUTH: Mucous membranes moist, no lesions, tongue and gums appear normal. Poor dentition throughout. Multiple dental cavities noted. I am unable to elicit any tenderness on palpation of the left upper dentition. Surrounding gingiva is without erythema, edema, drainage. No obvious abscess noted. NECK: Trachea midline. No lymphadenopathy. CARDIOVASCULAR: Regular rate. RESPIRATORY: No accessory muscle use. GASTROINTESTINAL: Rounded. MUSCULOSKELETAL: No obvious deformities. No clubbing. No cyanosis. No edema. NEUROLOGICAL: Awake and alert. Oriented 3. No obvious cranial nerve deficits. Motor grossly within normal limits. Normal speech. PSYCHIATRIC: Appropriate mood and affect; insight and judgment normal. Data Data Last Documented VS Vital Signs Date Time Temp Pulse Resp B/P (MAP) Pulse Ox O2 Delivery O2 Flow Rate FiO2 09/17/17 10:08 99.0 87 22 137/64 (88) 99 Orders Orders Complete Blood Count With Diff (09/17/17 10:13) Basic Metabolic Panel (Bmp) (09/17/17 10:13) Blood Culture (09/17/17 10:13) Ct Facial Bones W Iv Contrast (09/17/17 ) Iv Access Insert/Monitor (09/17/17 11:01) Sodium Chlor 0.9% 1000 Ml Inj (Ns 1000 M (09/17/17 11:01) Sodium Chloride 0.9% Flush (Ns Flush) (09/17/17 11:15) Ketorolac Inj (Toradol Inj) (09/17/17 11:15) Potassium Chloride (Kcl) (09/17/17 12:15) Iohexol 350 Inj (Omnipaque 350 Inj) (09/17/17 09:52) Ed Discharge Order (09/17/17 12:55) Labs Laboratory Tests Test 09/17/17 10:18 White Blood Count 10.7 TH/MM3 Red Blood Count 4.91 MIL/MM3 Hemoglobin 15.4 GM/DL Hematocrit 44.3 % Mean Corpuscular Volume 90.3 FL Mean Corpuscular Hemoglobin 31.4 PG Mean Corpuscular Hemoglobin Concent 34.8 % Red Cell Distribution Width 14.0 % Platelet Count 286 TH/MM3 Mean Platelet Volume 7.7 FL Neutrophils (%) (Auto) 69.6 % Lymphocytes (%) (Auto) 20.8 % Monocytes (%) (Auto) 8.7 % Eosinophils (%) (Auto) 0.5 % Basophils (%) (Auto) 0.4 % Neutrophils # (Auto) 7.4 TH/MM3 Lymphocytes # (Auto) 2.2 TH/MM3 Monocytes # (Auto) 0.9 TH/MM3 Eosinophils # (Auto) 0.1 TH/MM3 Basophils # (Auto) 0.0 TH/MM3 CBC Comment DIFF FINAL Differential Comment Blood Urea Nitrogen 10 MG/DL Creatinine 0.73 MG/DL Random Glucose 99 MG/DL Calcium Level 7.8 MG/DL Sodium Level 139 MEQ/L Potassium Level 3.2 MEQ/L Chloride Level 103 MEQ/L Carbon Dioxide Level 28.5 MEQ/L Anion Gap 8 MEQ/L Estimat Glomerular Filtration Rate 85 ML/MIN [facility] Medical Decision Making Medical Screen Exam Complete: Yes Emergency Medical Condition: Yes Medical Record Reviewed: Yes Differential Diagnosis Dental abscess, infected dental caries, gingivitis, dentalgia, facial abscess Narrative Course 46-year-old female with left-sided facial swelling. She was sent here by her dentist. She has had recurring facial swelling for the last 2-3 months and has been treated with antibiotics 3 times. Just finished taking Augmentin 2 days ago with recurrence of facial swelling last night. Denies dental pain. I'm unable to elicit pain on palpation of the left upper dentition. Patient has poor dentition throughout with multiple dental cavities. Reports fever of 101.0 last night. CBC, BMP, blood cultures ordered in triage. I discussed this patient with Dr. Doll, my attending physician, and he recommends CT facial bones with IV contrast. CT facial bones with IV contrast, IV, normal saline bolus, Toradol ordered. 1159: CBC unremarkable. Potassium 3.2, otherwise BMP unremarkable. 40 Meq potassium chloride ordered. 1247: CT facial bones with IV contrast concludes: No facial fractures; Left sided facial soft tissue swelling/contusion. Patient denies injury. Patient provided a copy of the CT report. She has hydrocodone for pain at home. Instructed patient to follow up with oral maxillofacial if symptoms persist despite clindamycin. Clindamycin prescribed for home. Instructed patient to follow up with primary care provider. Patient verbalizes understanding and agreement with treatment plan. Patient is medically cleared and stable for discharge. Discussed reasons to return to the emergency department. Patient agrees with treatment plan. The patients vital signs are stable and the patient is stable for outpatient follow-up and treatment. Patient discharged home, stable and in no acute distress. Diagnosis Primary Impression: Swelling of left side of face Additional Impression: Hypokalemia Referrals: Oral Maxillofacial Surgeon Primary Care Physician Patient Instructions: Atypical Facial Pain (ED), Facial Contusion (ED), General Instructions Additional Instructions: Antibiotics as prescribed Ice to affected area to help reduce pain and swelling Pain medication as prescribed and as needed for pain Ibuprofen or Tylenol as directed and as needed for pain and inflammation Follow-up with oral maxillofacial surgeon if symptoms persist, despite antibiotics Follow-up with dentist Follow-up with primary care provider Return to the emergency department immediately with worsening of symptoms Med/Other Pt SpecificInfo: Prescription(s) given, No Change to Meds Scripts Ibuprofen (Ibuprofen) 800 Mg Tab 800 MG PO Q6HR Y for PAIN, #30 TAB 0 Refills Prov: Valeria Campos 09/17/17 Clindamycin (Clindamycin) 150 Mg Cap 450 MG PO Q6H for Infection for 10 Days, #120 CAP 0 Refills Prov: Valeria Campos 09/17/17 Disposition: 01 DISCHARGE HOME Condition: Stable Valeria Campos Sep 17, 2017 11:20
[2017-09-17] MEDS ORDERED: POTASSIUM CHLORIDE 20 MEQ CONTROLLED RELEASE TAB PO ONE (12:15)
--- NOTE | 2017-09-17 12:20 | RADRPT ---
EXAM DATE/TIME: 09/17/2017 12:06 [facility] COMPARISON: No previous studies available for comparison. INDICATIONS : Left facial swelling. IV CONTRAST: 68 cc Omnipaque 350 (iohexol) IV RADIATION DOSE: 34.41 CTDIvol (mGy) MEDICAL HISTORY : Lupus. Renal calculi. SURGICAL HISTORY : Hysterectomy. ENCOUNTER: Initial ACUITY: 1 week PAIN SCALE: 6/10 LOCATION: Left facial TECHNIQUE: Volumetric scanning of the facial bones was performed. Using automated exposure control and adjustme nt of the mA and/or kV according to patient size, radiation dose was kept as low as reasonably achiev able to obtain optimal diagnostic quality images. DICOM format image data is available electronicall y for review and comparison. FINDINGS: ORBITS: The orbital and infraorbital osseous structures are intact. The retroconal structures have a normal configuration. No radiopaque foreign bodies are seen. NASAL BONE: The nasal bone and maxillary spine are intact ZYGOMATIC ARCHES: Symmetric without evidence of fracture. SINUSES: Mucosal thickening of the left maxillary sinus with probable mucous retention cyst along the floor. No air-fluid levels seen. NASAL CAVITY: The nasal septum is deviated to the left. The lacrimal ducts are intact. SOFT TISSUES: No radiopaque foreign bodies seen. Left-sided facial soft-tissue swelling is seen. INTRACRANIAL: No intracranial air seen. CRIBIFORM PLATE: Grossly intact. CONCLUSION: 1. No facial fractures. 2. Left sided facial soft tissue swelling/contusion. Ifeanyi Kinney MD on September 17, 2017 at 12:15 Board Certified Radiologist. This report was verified electronically.
[2017-09-17] MEDS ORDERED: IBUP1TAB7 PO (12:55)
[2017-09-17] MEDS ORDERED: CLIN150C14 PO (12:55)
== END 2017-09-17 13:15 | disposition home or self-care (01) ==
LOC: NEPD 09:51
DX: R22.9 Localized swelling, mass and lump, unspecified (principal); E87.6 Hypokalemia; F17.210 Nicotine dependence, cigarettes, uncomplicated; M06.9 Rheumatoid arthritis, unspecified; Z88.0 Allergy status to penicillin
CPT/HCPCS: 70487; 80048; 85025; 87040; 96374; 99284; J1885; J7030; Q9967

== ENCOUNTER 2017-12-16 06:49 | Emergency (ER) | payer MEDICAID ==
[~2017-12-16 06:49] MED LIST changes: +CLIN150C14 PO; +IBUP1TAB7 PO
[2017-12-16 06:56] VITALS: BP 109/56; PULSE 77; RESP 16; TEMP 97.6; O2SAT 97
[2017-12-16 07:25] VITALS: BP 120/57; PULSE 66; RESP 19; O2SAT 97
[2017-12-16] MEDS ORDERED: KETOROLAC TROMETHAMINE 30 MG/ML (IVP) VIAL IV PUSH ONE (07:30)
--- NOTE | 2017-12-16 07:32 | PD ---
HPI Chief Complaint: GI Complaint Time Seen by Provider: 07:12 Travel History International Travel<30 days: No Contact w/Intl Traveler<30days: No Traveled to known affect area: No History of Present Illness HPI 47-year-old female presents with right mid abdominal pain that has been present since 2 AM this morning when she was awake playing a game on her phone. She states she is also nauseous. She denies any other concurrent complaints. Quality pain is sharp. Severity is severe per patient. She denies any migration of the pain. She states that she was here she followed with her GI specialist and had a scope which was normal. She denies specific modifying factors. Location is right midabdomen. PFSH Past Medical History Blood Disorders: No Cancer: No Cardiovascular Problems: No Diminished Hearing: No Endocrine: No Immune Disorder: Yes (LUPUS) Kidney Stones: Yes Musculoskeletal: Yes (RA) Neurologic: Yes (NEUROPATHY HANDS AND FEET) Respiratory: No Past Surgical History Cholecystectomy: Yes Hysterectomy: Yes Oral Surgery: Yes (L WRIST SX, L LEG, BROKEN PELVIS) Other Surgery: Yes (HERNIA SX X 3) Social History Alcohol Use: Yes (RARELY) Tobacco Use: Yes (1 PPD) Substance Use: No Allergies-Medications (Allergen,Severity, Reaction): Coded Allergies: Sulfa (Sulfonamide Antibiotics) (Unverified Allergy, Severe, 12/16/17) morphine (Verified Allergy, Severe, Hives, 12/16/17) nalbuphine (Unverified Allergy, Severe, 12/16/17) penicillin G (Unverified Allergy, Severe, 12/16/17) codeine (Unverified Allergy, Intermediate, Hives, 12/16/17) adhesive tape (Verified Allergy, Unknown, 12/16/17) Reported Meds & Prescriptions Reported Meds & Active Scripts Active Reported Fentanyl Patch 72 HR (Fentanyl) 12 Mcg/Hr Patch 1 Patch T-DERMAL Q72H Remove old patch when new one placed. Hydrocodone-Acetaminophen 10-300 Tab 1 Tab PO Q6H PRN Review of Systems Except as stated in HPI: all other systems reviewed are Neg Physical Exam Narrative GENERAL: 47-year-old female who appears uncomfortable SKIN: Focused skin assessment warm/dry. HEAD: Atraumatic. Normocephalic. EYES: Pinpoint pupilsPinpoint pupils. No scleral icterus. No injection or drainage. ENT: No nasal bleeding or discharge. Mucous membranes pink and moist. NECK: Trachea midline. No JVD. CARDIOVASCULAR: Regular rate and rhythm. RESPIRATORY: No accessory muscle use. Clear to auscultation. Breath sounds equal bilaterally. GASTROINTESTINAL: Abdomen soft, tender right mid lateral abdomen, nondistended. No rebound or guarding MUSCULOSKELETAL: No obvious deformities. No clubbing. No cyanosis. No edema. NEUROLOGICAL: Awake and alert. No obvious cranial nerve deficits. Motor grossly within normal limits. Normal speech. PSYCHIATRIC: Appropriate mood and affect; insight and judgment normal. Data Data Last Documented VS Vital Signs Date Time Temp Pulse Resp B/P (MAP) Pulse Ox O2 Delivery O2 Flow Rate FiO2 12/16/17 08:54 17 12/16/17 07:25 66 120/57 (78) 97 Room Air 12/16/17 06:56 97.6 Orders Orders Complete Blood Count With Diff (12/16/17 07:12) Comprehensive Metabolic Panel (12/16/17 07:12) Urinalysis - C+S If Indicated (12/16/17 07:12) Lipase (12/16/17 07:12) Iv Access Insert/Monitor (12/16/17 07:12) Ketorolac Inj (Toradol Inj) (12/16/17 07:30) Ct Abd/Pel W Iv Contrast(Rout) (12/16/17 ) Urine Culture (12/16/17 07:28) Iohexol 350 Inj (Omnipaque 350 Inj) (12/16/17 08:26) Ed Discharge Order (12/16/17 09:29) Labs Laboratory Tests Test 12/16/17 07:22 12/16/17 07:28 White Blood Count 8.4 TH/MM3 Red Blood Count 4.48 MIL/MM3 Hemoglobin 13.5 GM/DL Hematocrit 40.2 % Mean Corpuscular Volume 89.7 FL Mean Corpuscular Hemoglobin 30.2 PG Mean Corpuscular Hemoglobin Concent 33.6 % Red Cell Distribution Width 13.0 % Platelet Count 261 TH/MM3 Mean Platelet Volume 8.0 FL Neutrophils (%) (Auto) 56.4 % Lymphocytes (%) (Auto) 34.0 % Monocytes (%) (Auto) 7.7 % Eosinophils (%) (Auto) 1.4 % Basophils (%) (Auto) 0.5 % Neutrophils # (Auto) 4.8 TH/MM3 Lymphocytes # (Auto) 2.9 TH/MM3 Monocytes # (Auto) 0.6 TH/MM3 Eosinophils # (Auto) 0.1 TH/MM3 Basophils # (Auto) 0.0 TH/MM3 CBC Comment DIFF FINAL Differential Comment Blood Urea Nitrogen 9 MG/DL Creatinine 0.65 MG/DL Random Glucose 103 MG/DL Total Protein 6.7 GM/DL Albumin 3.3 GM/DL Calcium Level 8.7 MG/DL Alkaline Phosphatase 72 U/L Aspartate Amino Transf (AST/SGOT) 11 U/L Alanine Aminotransferase (ALT/SGPT) 22 U/L Total Bilirubin 0.2 MG/DL Sodium Level 139 MEQ/L Potassium Level 3.4 MEQ/L Chloride Level 105 MEQ/L Carbon Dioxide Level 24.7 MEQ/L Anion Gap 9 MEQ/L Estimat Glomerular Filtration Rate 97 ML/MIN Lipase 85 U/L Urine Color YELLOW Urine Turbidity CLOUDY Urine pH 5.5 Urine Specific [place] 1.022 Urine Protein TRACE mg/dL Urine Glucose (UA) NEG mg/dL Urine Ketones NEG mg/dL Urine Occult Blood NEG Urine Nitrite NEG Urine Bilirubin NEG Urine Urobilinogen 2.0 MG/DL Urine Leukocyte Esterase NEG Urine RBC 1 /hpf Urine WBC 5 /hpf Urine Squamous Epithelial Cells 79 /hpf Urine Transitional Epithelial Cells 1 /hpf Urine Bacteria MANY /hpf Urine Mucus FEW /lpf Microscopic Urinalysis Comment CULTURE INDICATED MDM Medical Decision Making Medical Screen Exam Complete: Yes Emergency Medical Condition: Yes Medical Record Reviewed: Yes (Past history confirmed, prior visit for abdominal pain with admission noted) Interpretation(s) CBC & BMP Diagram 12/16/17 07:22 Total Protein 6.7, Albumin 3.3 L, Calcium Level 8.7, Alkaline Phosphatase 72, Aspartate Amino Transf (AST/SGOT) 11 L, Alanine Aminotransferase (ALT/SGPT) 22, Total Bilirubin 0.2 Last 24 hours Impressions Abdomen/Pelvis CT 12/16/17 0000 Signed Impressions: CONCLUSION: 1. No acute finding is identified to explain the right mid abdominal pain. 2. Nonacute findings include moderate atherosclerotic disease and 2 left ovari an cystic lesions measuring up to 2.3 cm. Differential Diagnosis Appendicitis, stone,Adhesions Narrative Course will check labs, ua and imaging and dose with toradol and reevaluate ed workup no acute, patient resting when I entered the room, Patient denies any new complaints, all questions answered. Patient knows that follow up is incumbent on them and to return to the emergency room immediately if new or worsening symptoms develop. Patient given strict return precautions, vitals reviewed and are normal, agrees to further workup as an outpatient. Diagnosis Primary Impression: Acute abdominal pain Patient Instructions: General Instructions Additional Instructions: return as needed, follow with primary this week, continue home medications Med/Other Pt SpecificInfo: No Change to Meds Disposition: 01 DISCHARGE HOME Condition: Stable Tatiana Finch MD Dec 16, 2017 07:32
[2017-12-16] MEDS ORDERED: FENT12DI T-DERMAL (07:36)
[2017-12-16] MEDS ORDERED: HYDR-2374 PO (07:36)
[2017-12-16 07:41] LABS: AUTOMATED NEUTROPHIL # 4.8 TH/MM3 (1.8-7.7); BASOPHIL % 0.5 % (0.0-2.0); EOSINOPHIL # 0.1 TH/MM3 (0-0.4); EOSINOPHIL % 1.4 % (0.0-4.0); HEMATOCRIT 40.2 % (35.0-46.0); HEMOGLOBIN 13.5 GM/DL (11.6-15.3); LYMPHOCYTE # 2.9 TH/MM3 (1.0-4.8); MEAN CELL VOLUME 89.7 FL (80.0-100.0); MEAN CORPUSCULAR HEMOGLOBIN 30.2 PG (27.0-34.0); MEAN CORPUSCULAR HGB CONC 33.6 % (32.0-36.0); MONO % 7.7 % (0.0-8.0); MONOCYTE # 0.6 TH/MM3 (0-0.9); NEUT % 56.4 % (16.0-70.0); PLATELET COUNT 261 TH/MM3 (150-450); RED BLOOD COUNT 4.48 MIL/MM3 (4.00-5.30); WHITE BLOOD COUNT 8.4 TH/MM3 (4.0-11.0)
[2017-12-16 07:56] LABS: ALBUMIN 3.3 GM/DL (3.4-5.0); AST (GOT) 11 U/L (15-37); BICARBONATE 24.7 MEQ/L (21.0-32.0); BLOOD UREA NITROGEN 9 MG/DL (7-18); CALCIUM 8.7 MG/DL (8.5-10.1); CHLORIDE 105 MEQ/L (98-107); CREATININE 0.65 MG/DL (0.50-1.00); GLOMERULAR FILTRATION RATE 97 ML/MIN (>89); GLUCOSE,RANDOM 103 MG/DL (74-106); SODIUM (NA) 139 MEQ/L (136-145)
[2017-12-16 07:58] LABS: ALT (GPT) 22 U/L (10-53)
[2017-12-16 07:59] LABS: ALKALINE PHOSPHATASE 72 U/L (45-117); TOTAL BILIRUBIN ADULT 0.2 MG/DL (0.2-1.0); TOTAL PROTEIN 6.7 GM/DL (6.4-8.2)
[2017-12-16 08:00] LABS: BACTERIA, URINE MANY /hpf; BILIRUBIN, URINE NEG (NEG); BLOOD, URINE NEG (NEG); GLUCOSE,URINE NEG (NEG); KETONE, URINE NEG (NEG); MUCUS URINE FEW /lpf (OCC); NITRITE,URINE NEG (NEG); PH, URINE 5.5 (5.0-8.5); SQUAMOUS EPITHELIAL CELL URINE 79 /hpf (0-5); TRANSITIONAL EPI CELLS, URINE 1 /hpf; URINE COLOR YELLOW (YELLW/STRAW); URINE LEUKOCYTE ESTERASE NEG (NEG)
[2017-12-16] MEDS ORDERED: IOHEXOL 350 MG/ML 10 ML VIAL (for RAD DIAG) IVCONTRAST ONE (08:26)
[2017-12-16 08:54] VITALS: RESP 17
--- NOTE | 2017-12-16 09:23 | RADRPT ---
EXAM DATE: 12/16/2017 8:32 AM EDT AGE/SEX: 47 years / Female INDICATIONS: Right mid abdominal pain. CLINICAL DATA: This is the patient's initial encounter. Patient reports that signs and symptoms have been present for 1 day and indicates a pain score of 10/10. MEDICAL/SURGICAL HISTORY: Lupus. Cholecystectomy. Hysterectomy. Hernia repair. Pelvis repair. ORAL CONTRAST: No oral contrast ingested. RADIATION DOSE: 6.77 CTDI (mGy) COMPARISON: [facility] [place], CT ABDOMEN & PELVIS W CONTRAST, 10/27/2016. . TECHNIQUE: Multiple contiguous axial images were obtained through the abdomen and pelvis following b olus infusion of 95 ml Omnipaque 350 (iohexol) nonionic water-soluble contrast as a single exam dos e. No oral contrast ingested. Using automated exposure control and adjustment of the mA and/or kV ac cording to patient size, the radiation dose was kept as low as reasonably achievable to obtain optima l diagnostic quality images. FINDINGS: Lower chest: No acute abnormality is identified. Hepatobiliary: No focal liver lesion is identified. Hepatic vasculature demonstrates no abnormality. Gallbladder is absent with clips in the gallbladder fossa. No bile duct dilatation is present. Kidneys: No hydronephrosis, stone, or mass. Adrenal Glands: Within normal limits. Spleen: Within normal limits. Pancreas: Within normal limits. Vascular: The aorta is nonaneurysmal. There is mild atherosclerotic disease. Bowel/Mesentery: The stomach and small bowel demonstrate no abnormality. No acute colon abnormality i s seen. There is no free intraperitoneal air or fluid. Abdominal Wall: There is mesh along the anterior abdominal wall related to prior umbilical region her shine repair. No recurrent hernia is seen. Retroperitoneum: No lymphadenopathy. Bladder: No wall thickening or mass. Reproductive: Uterus is absent. There are 2 cystic lesions in the left ovary. These appear simple and measure 1.5 cm and 2.3 cm. No abnormality is identified in the right adnexa. Inguinal: No lymphadenopathy or hernia. Musculoskeletal: No acute osseous abnormality is identified. There are degenerative changes of the karina mbar spine with mild rightward convex curvature. Plate and screws traverse the pubic symphysis. CONCLUSION: 1. No acute finding is identified to explain the right mid abdominal pain. 2. Nonacute findings include moderate atherosclerotic disease and 2 left ovarian cystic lesions geoff uring up to 2.3 cm. Electronically signed by: Juan F Trevino MD 12/16/2017 9:21 AM EDT
== END 2017-12-16 09:57 | disposition home or self-care (01) ==
LOC: NEPE 06:49
DX: R10.9 Unspecified abdominal pain (principal); M32.9 Systemic lupus erythematosus, unspecified; M06.9 Rheumatoid arthritis, unspecified; G62.9 Polyneuropathy, unspecified; F17.200 Nicotine dependence, unspecified, uncomplicated; Z87.442 Personal history of urinary calculi
CPT/HCPCS: 74177; 80053; 81001; 83690; 85025; 87086; 96374; 99284; J1885; Q9967